=== PATIENT | male | born 1970 | race Two or more races ===

== ENCOUNTER 2024-06-28 04:10 | Emergency (ER) | payer SELFPAY ==
[~2024-06-28] VITALS: Ht 172.7 cm; Wt 72.0 kg
[2024-06-28 04:23] VITALS: BP 147/90; PULSE 113; RESP 20; TEMP 97.8; O2SAT 100
== END 2024-06-28 04:23 | disposition left against medical advice (07) ==
LOC: EDBD 04:10 → ER 04:10
DX: R46.2 Strange and inexplicable behavior (principal); R41.0 Disorientation, unspecified; T50.995A Adverse effect of other drugs, medicaments and biological substances, initial encounter; Z53.21 Procedure and treatment not carried out due to patient leaving prior to being seen by health care provider; X58.XXXA Exposure to other specified factors, initial encounter